=== PATIENT | male | born 1970 | race Caucasian/White ===

== ENCOUNTER 2017-02-03 08:30 | Inpatient (IN) | payer OTHER ==
[~2017-02-03] VITALS: Ht 188 cm; Wt 118.9 kg
[2017-02-04 05:14] LABS: HCT 39.6 % (42.0-52.0); HGB 13.6 g/dl (13.2-18.0); MCH 32.5 pg (25.0-31.0); MCHC 34.3 g/dL (32.0-36.0); MCV 94.7 fL (78.0-100.0); MPV 11.3 fL (6.0-9.5); RBC 4.18 M/uL (4.70-6.00); RDW 12.4 % (11.5-14.0)
[2017-02-04 05:40] LABS: POTASSIUM 4.3 mmol/L (3.5-5.1)
[2017-02-04] MEDS ORDERED: ZYRTEC10 MG PO (13:32)
[2017-02-04] MEDS ORDERED: ACETAMINOPHEN325 MG PO (13:34)
[2017-02-04] MEDS ORDERED: BACLOFEN 10MG T10 MG PO (13:34)
[2017-02-04] MEDS ORDERED: PERCOCET 5-3251 EACH PO (13:34)
== END 2017-02-04 15:10 | disposition home or self-care (01) | DRG 483 ==
LOC: FMS 08:30
PROVIDERS: ADMIT Orthopaedic Surgery
PROC: 0RRJ0JZ Replacement of Right Shoulder Joint with Synthetic Substitute, Open Approach (ICD-10-PCS; principal; 2017-02-03 08:30)
PROC: 0LS30ZZ Reposition Right Upper Arm Tendon, Open Approach (ICD-10-PCS; 2017-02-03 08:30)
DX: M19.011 Primary osteoarthritis, right shoulder (principal); F41.9 Anxiety disorder, unspecified; J30.2 Other seasonal allergic rhinitis
CPT/HCPCS: 36415; 80048; 86850; 86900; 86901; 88304; 88311; 94010; 94762; 97116; 97161; 97165; 97530; 97530-GP; 97535; C1713; C1776; J0131; J0697; J1100; J1170; J1885; J2270; J2405; J2704; J2795; J3010